=== PATIENT | male | born 1980 ===

== ENCOUNTER 2020-01-29 21:51 | Emergency (ER) | payer SELFPAY ==
[2020-01-29] MEDS ORDERED: NA CHLORIDE 0.9% 1,000 ML ONE (22:59)
[2020-01-29] MEDS ORDERED: ACETAMINOPHEN 500 MG TAB ONE (22:59)
[2020-01-29] MEDS ORDERED: ONDANSETRON 4 MG/2 ML VIAL ONE (23:21)
[2020-01-29 23:38] LABS: Basophils % 0.3 % (0-1.3); Lymphocytes % 16.2 % (15.3-44.8); RBC Red Blood Cell Count 6.06 M/uL (4.33-5.43)
[2020-01-29] MEDS ORDERED: HYDROCODONE/CHLORPHEN 5 ML/OSYR ONE (23:40)
[2020-01-29 23:44] LABS: Albumin 2.6 g/dL (3.4-5.0); Bilirubin Direct 0.2 mg/dL (0-0.2); Bilirubin Total 0.5 mg/dL (0.2-1.0); Potassium 4.3 mmol/L (3.5-5.1); Protein, Total 7.1 g/dL (6.4-8.2)
[2020-01-30 00:23] LABS: Platelet Estimate ADEQ; Urine White Blood Cell Casts OK
[2020-01-30 00:24] LABS: Blood Morphology Comment NOT SEEN (NOT SEEN)
--- NOTE | 2020-01-30 01:05 | ER ---
Nurse's Notes [facility] Name: Asif Cortes Age: 39 yrs Sex: Male : 1980 Arrival Date: 01/29/2020 Time: 22:02 Bed 15 Private MD: Diagnosis: Viral infection, unspecified Presentation: 01/28 22:03 Chief complaint: Patient states: "My sister tested positive for COVID-19 and I live jd3 with her and I am starting to have some of the same symptoms. I haven't been tested, but I think I might have it too. I feel short of breath and having fevers off and on. I also recently started having nausea and vomiting.". Coronavirus screen: Patient reports a cough. Patient reports shortness of breath or difficulty breathing. Patient reports a measured and/or subjective temperature greater than 100.4F. Patient denies travel on a cruise ship or to a country the [facility] currently lists as an affected area. Patient reports contact with known and/or suspected case of COVID-19. Ebola Screen: Patient negative for fever greater than or equal to 101.5 degrees Fahrenheit, and additional compatible Ebola Virus Disease symptoms. Initial Sepsis Screen: Does the patient meet any 2 criteria? HR > 90 bpm. No. Patient's initial sepsis screen is negative. Does the patient have a suspected source of infection? No. Patient's initial sepsis screen is negative. Risk Assessment: Do you want to hurt yourself or someone else? Patient reports no desire to harm self or others. Onset of symptoms was January 27, 2020. 22:03 Method Of Arrival: Ambulatory j 22:03 Acuity: IRVIN 3 jd3 Triage Assessment: 01/29 00:00 General: Appears uncomfortable, Behavior is calm, cooperative, quiet. Pain: Denies ls4 pain. Neuro: No deficits noted. Cardiovascular: Denies chest pain, Capillary refill < 3 seconds Patient's skin is warm and dry. Respiratory: Reports shortness of breath at rest on exertion cough that is non-productive, dry, hacking, persistent Airway is patent Respiratory effort is even, unlabored, Respiratory pattern is tachypnea Breath sounds are clear bilaterally. the patient has moderate shortness of breath. GI: Reports nausea. : No deficits noted. No signs and/or symptoms were reported regarding the genitourinary system. Derm: No deficits noted. No signs and/or symptoms reported regarding the dermatologic system. Musculoskeletal: No deficits noted. No signs and/or symptoms reported regarding the musculoskeletal system. Historical: - Allergies: 01/28 22:08 No Known Allergies; jd3 - Home Meds: 22:08 Metformin Oral [Active]; jd3 - PMHx: 22:08 Diabetes - NIDDM; jd3 - PSHx: 22:08 None; jd3 - Immunization history:: Adult Immunizations up to date. - Social history:: Smoking status: Patient denies any tobacco usage or history of. Screenin:01 Abuse screen: Denies threats or abuse. Denies injuries from another. Nutritional ls4 screening: No deficits noted. Tuberculosis screening: No symptoms or risk factors identified. Fall Risk None identified. Assessment: 23:00 Reassessment: Patient appears in no apparent distress at this time. Patient and/or ls4 family updated on plan of care and expected duration. Pain level reassessed. Patient is alert, oriented x 3, equal unlabored respirations, skin warm/dry/pink. 01/29 00:00 Reassessment: Patient appears in no apparent distress at this time. Patient and/or ls4 family updated on plan of care and expected duration. Pain level reassessed. Patient is alert, oriented x 3, equal unlabored respirations, skin warm/dry/pink. 01:02 Reassessment: Patient appears in no apparent distress at this time. Patient and/or ls4 family updated on plan of care and expected duration. Pain level reassessed. Patient is alert, oriented x 3, equal unlabored respirations, skin warm/dry/pink. Vital Signs: 01/28 22:06 BP 121 / 81; Pulse 114; Resp 20 S; Temp 100.3(O); Pulse Ox 96% on R/A; Weight 86.18 kg jd3 (R); Height 5 ft. 8 in. (172.72 cm) (R); Pain 8/10; 23:57 BP 106 / 80; Pulse 111; Resp 28; Temp 101.3(O); Pulse Ox 99% on R/A; Pain 0/10; ls4 01/29 01:16 BP 125 / 84; Pulse 99; Resp 20; Temp 100.4; Pulse Ox 97% on R/A; Pain 0/10; ls4 01/28 22:06 Body Mass Index 28.89 (86.18 kg, 172.72 cm) jd3 ED Course: 01/28 22:01 Patient has correct armband on for positive identification. Bed in low position. Call ls4 light in reach. Side rails up X 1. [employer]. agricultural researcher on. Pulse ox on. NIBP on. Verbal reassurance given. Droplet isolation initiated. 22:02 Patient arrived in ED. es 22:03 Yue Paz RN is Primary Nurse. ls4 22:05 Umesh Bishop PA is PHCP. jr8 22:05 Allan Trejo MD is Attending Physician. jr8 22:06 Triage completed. jd3 22:07 Arm band placed on. jd3 22:50 No provider procedures requiring assistance completed. Inserted saline lock: 18 gauge ls4 in right antecubital area, using aseptic technique. 23:24 XRAY Chest (1 view) Sent. ls4 23:53 XRAY Chest (1 view) In Process Unspecified. EDMS 01/29 01:02 No apparent distress. Resting quietly. ls4 01:18 No apparent distress. Resting quietly. ls4 01:56 IV discontinued, intact, bleeding controlled, No redness/swelling at site. Pressure ls4 dressing applied. Administered Medications: 01/28 22:58 Drug: NS 0.9% 1000 ml Route: IV; Rate: 1000 ml; Site: right antecubital; ls4 23:57 Follow up: IV Status: Completed infusion; IV Intake: 1000ml ls4 22:58 Drug: Tylenol 1000 mg Route: PO; ls4 23:57 Follow up: Response: No adverse reaction ls4 23:57 Drug: Tussionex Pennkinetic ER 5 ml Route: PO; ls4 01/29 00:35 Follow up: Response: No adverse reaction; Marked relief of symptoms ls4 01/28 23:57 Drug: Zofran (Ondansetron) 4 mg Route: IVP; Site: right antecubital; ls4 01/29 00:34 Follow up: Response: No adverse reaction; Marked relief of symptoms ls4 01:16 Drug: TORadol - Ketorolac 15 mg Route: IVP; Site: right antecubital; ls4 02:15 Follow up: Response: No adverse reaction; Marked relief of symptoms ls4 Intake: 01/28 23:57 IV: 1000ml; Total: 1000ml. ls4 Outcome: 01/29 01:05 Discharge ordered by . stefan 01:55 Discharged to home ambulatory. ls4 01:55 Condition: good 01:55 Discharge instructions given to patient, Instructed on discharge instructions, follow up and referral plans. medication usage, safety practices, Demonstrated understanding of instructions, follow-up care, medications, Prescriptions given X 1. 02:11 Patient left the ED. ls4 Addendum: 01/31/2020 15:16 Addendum: Other positive covid result. Attempt to contact patient by Dr. Perez. No s s answer, no VM set up. Signatures: Dispatcher [employer] EDRomelia Kam Shelby RN RN Umesh Oakley PA PA jr8 Davies, Jonathon, RN RN jYue Burnham RN RN ls4 Corrections: (The following items were deleted from the chart) 01/28 22:14 22:03 Chief complaint: Patient states: "My girlfriend tested positive for COVID-19 and jd3 I am starting to have some of the same symptoms. I haven't been tested, but I think I might have it too. I feel short of breath and having fevers off and on. I also recently started having nausea and vomiting." jd3
--- NOTE | 2020-01-30 01:05 | EDPHYS ---
Physician Documentation [facility] Name: Asif Cortes Age: 39 yrs Sex: Male : 1980 Arrival Date: 01/29/2020 Time: 22:02 Bed 15 Private MD: ED Physician Allan Trejo HPI: 01/28 22:49 This 39 yrs old Male presents to ER via Ambulatory with complaints of fever. jr8 22:49 The patient reports fever, with an emergency department temperature of 100.3 degrees jr8 Fahrenheit. Onset: The symptoms/episode began/occurred gradually, 5 day(s) ago. Modifying factors: there are no obvious modifying factors. Associated signs and symptoms: Pertinent positives: chills, cough, decreased appetite, myalgias, nausea, diarrhea. Severity of symptoms: At their worst the symptoms were moderate in the emergency department the symptoms are unchanged. The patient has not experienced similar symptoms in the past. The patient has not recently seen a physician. Patient stated that his sister has been having similar symptoms to him. She started before his symptoms. Was tested for COVID and was positive. Stated that he has now had symptoms as well for about 5 days . Historical: - Allergies: 22:08 No Known Allergies; jd3 - Home Meds: 22:08 Metformin Oral [Active]; jd3 - PMHx: 22:08 Diabetes - NIDDM; jd3 - PSHx: 22:08 None; jd3 - Immunization history:: Adult Immunizations up to date. - Social history:: Smoking status: Patient denies any tobacco usage or history of. ROS: 22:49 Eyes: Negative for injury, pain, redness, and discharge, ENT: Negative for injury, jr8 pain, and discharge, Neck: Negative for injury, pain, and swelling, Cardiovascular: Negative for chest pain, palpitations, and edema, Back: Negative for injury and pain, MS/Extremity: Negative for injury and deformity, Skin: Negative for injury, rash, and discoloration. 22:49 Constitutional: Positive for body aches, chills, fever, malaise, poor PO intake. 22:49 Respiratory: Positive for cough, Negative for dyspnea on exertion, shortness of breath, sputum production, wheezing. 22:49 Abdomen/GI: Positive for nausea, diarrhea, Negative for abdominal pain, vomiting. 22:49 Neuro: Positive for headache. Exam: 22:49 Eyes: Pupils equal round and reactive to light, extra-ocular motions intact. Lids and jr8 lashes normal. Conjunctiva and sclera are non-icteric and not injected. Cornea within normal limits. Periorbital areas with no swelling, redness, or edema. ENT: Nares patent. No nasal discharge, no septal abnormalities noted. Tympanic membranes are normal and external auditory canals are clear. Oropharynx with no redness, swelling, or masses, exudates, or evidence of obstruction, uvula midline. Mucous membranes moist. Neck: Trachea midline, no thyromegaly or masses palpated, and no cervical lymphadenopathy. Supple, full range of motion without nuchal rigidity, or vertebral point tenderness. No Meningismus. Respiratory: Lungs have equal breath sounds bilaterally, clear to auscultation and percussion. No rales, rhonchi or wheezes noted. No increased work of breathing, no retractions or nasal flaring. Abdomen/GI: Soft, non-tender, with normal bowel sounds. No distension or tympany. No guarding or rebound. No evidence of tenderness throughout. Back: No spinal tenderness. No costovertebral tenderness. Full range of motion. Skin: Warm, dry with normal turgor. Normal color with no rashes, no lesions, and no evidence of cellulitis. MS/ Extremity: Pulses equal, no cyanosis. Neurovascular intact. Full, normal range of motion. Neuro: Awake and alert, GCS 15, oriented to person, place, time, and situation. Cranial nerves II-XII grossly intact. Motor strength 5/5 in all extremities. Sensory grossly intact. Cerebellar exam normal. Normal gait. 22:49 Cardiovascular: Rate: tachycardic, Rhythm: regular, Pulses: Pulses are 2+ in right radial artery and left radial artery. Heart sounds: normal, normal S1and S2, no S3 or S4, no murmur, no rub, no gallop, Edema: is not appreciated, JVD: is not appreciated. Vital Signs: 22:06 BP 121 / 81; Pulse 114; Resp 20 S; Temp 100.3(O); Pulse Ox 96% on R/A; Weight 86.18 kg jd3 (R); Height 5 ft. 8 in. (172.72 cm) (R); Pain 8/10; 23:57 BP 106 / 80; Pulse 111; Resp 28; Temp 101.3(O); Pulse Ox 99% on R/A; Pain 0/10; ls4 01/29 01:16 BP 125 / 84; Pulse 99; Resp 20; Temp 100.4; Pulse Ox 97% on R/A; Pain 0/10; ls4 01/28 22:06 Body Mass Index 28.89 (86.18 kg, 172.72 cm) jd3 MDM: 01/28 22:05 Patient medically screened. 8 23:54 Data reviewed: vital signs, nurses notes, lab test result(s), radiologic studies, plain jr8 films, and as a result, I will discharge patient. Data interpreted: Pulse oximetry: on room air is 96 %. Interpretation: normal. Counseling: I had a detailed discussion with the patient and/or guardian regarding: the historical points, exam findings, and any diagnostic results supporting the discharge/admit diagnosis, lab results, radiology results, the need for outpatient follow up, a family practitioner, to return to the emergency department if symptoms worsen or persist or if there are any questions or concerns that arise at home. Response to treatment: the patient's symptoms have mildly improved after treatment. ED course: Discussed with patient that he needs to continue to isolate at home. If he started to have breathing difficulty or felt worse to come back. Otherwise wait until his PCR results come back . 01/28 22:35 Order name: Basic Metabolic Panel; Complete Time: 23:50 [facility] 01/28 22:35 Order name: CBC with Diff; Complete Time: 00:31 [facility] 01/28 22:35 Order name: Hepatic Function; Complete Time: 23:50 [facility] 01/28 22:35 Order name: Lipase; Complete Time: 23:50 [facility] 01/28 22:35 Order name: COVID-19 [facility] 01/28 23:48 Order name: CBC Smear Scan; Complete Time: 00:31 [facility] 01/28 22:35 Order name: IV Saline Lock; Complete Time: 23:24 [facility] 01/28 22:35 Order name: Labs collected and sent; Complete Time: 23:24 [facility] 01/28 22:35 Order name: XRAY Chest (1 view) [facility] Administered Medications: 22:58 Drug: NS 0.9% 1000 ml Route: IV; Rate: 1000 ml; Site: right antecubital; ls4 23:57 Follow up: IV Status: Completed infusion; IV Intake: 1000ml ls4 22:58 Drug: Tylenol 1000 mg Route: PO; ls4 23:57 Follow up: Response: No adverse reaction ls4 23:57 Drug: Tussionex Pennkinetic ER 5 ml Route: PO; ls4 01/29 00:35 Follow up: Response: No adverse reaction; Marked relief of symptoms ls4 01/28 23:57 Drug: Zofran (Ondansetron) 4 mg Route: IVP; Site: right antecubital; ls4 01/29 00:34 Follow up: Response: No adverse reaction; Marked relief of symptoms ls4 01:16 Drug: TORadol - Ketorolac 15 mg Route: IVP; Site: right antecubital; ls4 02:15 Follow up: Response: No adverse reaction; Marked relief of symptoms ls4 Disposition: 05:41 Co-signature as Attending Physician, Allan Trejo MD I agree with the assessment and tw4 plan of care. Disposition: 01/30/20 01:05 Discharged to Home. Impression: Viral infection, unspecified. - Condition is Stable. - Discharge Instructions: Viral Respiratory Infection. - Prescriptions for Zofran 4 mg Oral Tablet - take 1 tablet by ORAL route every 12 hours As needed; 20 tablet. - Medication Reconciliation Form, Thank You Letter, Antibiotic Education, Prescription Opioid Use, Work release form form. - Follow up: Private Physician; When: As needed; Reason: Recheck today's complaints, Continuance of care, Re-evaluation by your physician. - Problem is new. - Symptoms have improved. Signatures: Dispatcher [employer] EDMS Umesh Bishop PA PA jr8 Maximo Contreras RN RN Allan Foreman MD MD tw4 Yue Paz RN RN ls4 Corrections: (The following items were deleted from the chart) 02:11 01:05 01/30/2020 01:05 Discharged to Home. Impression: Viral infection, unspecified. ls4 Condition is Stable. Forms are Medication Reconciliation Form, Thank You Letter, Antibiotic Education, Prescription Opioid Use. Follow up: Private Physician; When: As needed; Reason: Recheck today's complaints, Continuance of care, Re-evaluation by your physician. Problem is new. Symptoms have improved. jr8
[2020-01-30] MEDS ORDERED: KETOROLAC 30 MG/ML INJ ONE (01:12)
[2020-01-30 02:21] VITALS: BP 125/84; TEMP 100.4; O2SAT 97
--- NOTE | 2020-01-30 07:52 | RAD REPORT ---
EXAM DESCRIPTION: RAD - Chest Single View - 01/29/2020 11:53 pm CLINICAL HISTORY: covid;Dyspnea, history of positive COVID-19 in a household family member. COMPARISON: None TECHNIQUE: AP portable chest image was obtained 01/29/2020 11:53 pm . FINDINGS: Lung volumes are reduced. Patchy airspace opacities are present in the right upper lobe. N o other focal infiltrates confirmed. No failure or volume overload. Heart and vasculature are normal. No measurable pleural effusion and no pneumothorax. No acute bony abnormality seen. No acute aortic findings suspected. IMPRESSION: Patchy right upper lobe pneumonia findings are evident. COVID-19 pneumonia is possible given the history. Chest film pattern is not classic for COVID-19.
== END 2020-01-30 02:11 | disposition home or self-care (01) ==
LOC: ER 21:51
DX: U07.1 COVID-19 (principal); B34.9 Viral infection, unspecified; E11.9 Type 2 diabetes mellitus without complications
CPT/HCPCS: 36415; 71045; 80048; 80076; 83690; 85025; 96361; 96374; 96375; 99285; J2405; J7030; U0001